=== PATIENT | female | born 1950 | race Caucasian/White ===

== ENCOUNTER 2017-08-23 15:24 | Inpatient (IN) | payer MEDICARE ==
[2017-08-23 16:51] LABS: EOS % 0.6 % (0-6); GRAN % 49.7 % (47-80); HEMOGLOBIN 13.3 gm/dl (11.6-16.0); LYMPH % 39.3 % (16-45); MEAN CELL VOLUME 79.3 fl (81-97); MEAN CORPUSCULAR HEMOGLOBIN 25.7 pg (27-33); MEAN CORPUSCULAR HGB CONC 32.4 g/dl (32-36); MEAN PLATELET VOLUME 10.6 fl (7.4-10.4); MONO % 10.4 % (0-9); PLATELET COUNT 172 K/uL (130-400); RED BLOOD COUNT 5.17 M/uL (3.80-5.40); RED CELL DISTRIBUTION WIDTH 15.1 % (11.5-14.5); WHITE BLOOD COUNT W/O DIFF 1.7 K/uL (4.2-12.2)
[2017-08-23 17:03] LABS: CREATININE 1.4 mg/dL (0.5-0.9)
[2017-08-23 17:04] LABS: BILIRUBIN,TOTAL 0.6 mg/dL (0.2-1.0); TOTAL PROTEIN 7.6 g/dL (6.6-8.7)
[2017-08-23 17:09] LABS: ALB/GLOB RATIO 1.2 (1.1-1.8); ALBUMIN 4.1 g/dL (4.0-5.0)
--- NOTE | 2017-08-23 17:18 | Emergency Department Record ---
History of Present Illness - General Chief complaint: Weakness Stated complaint: KEEPS FALLING,AND NOT EATING Time Seen by Provider: 08/23/17 15:47 Source: Patient Mode of Arrival: Wheelchair Limitations: No limitations - History of Present Illness Initial comments: pt has been getting increasingly weak and having frequent falls. she has sat in a chair since yesterday because she was too weak to get up. Complaint: Generalized weakness Onset/Timin -: Days(s) Location: Generalized Severity: Mild Severity scale (1-10): 5 Quality: Aching Consistency: Getting worse Improves with: None Worsens with: None Associated Symptoms: Loss of appetite - Melva Coma Scale Eye Response: (4) Open spontaneously Motor Response: (6) Obeys commands Verbal Response: (5) Oriented [place] Total: 15 - Symptoms of Stroke Symptoms of stroke: Muscle Weakness - Related Data Home Medications Medication Instructions Recorded Confirmed Last Taken Diltiazem HCl [Cardizem] 60 mg PO DAILY 08/23/17 08/23/17 Unknown Allergies Allergy/AdvReac Type Severity Reaction Status Date / Time Penicillins Allergy PT UNSURE Verified 08/23/17 15:47 OF REACTION Travel Screening - Travel/Exposure Within Last 30 Days Have you traveled within the last 30 days?: No - Travel/Exposure Within Last Year Have you traveled outside the [place] in the last year?: No - Additonal Travel Details Have you been exposed to anyone with a communicable illness?: No - Travel Symptoms Symptom Screening: None Review of Systems Reviewed: No additional complaints except as noted below Constitutional: Reports: As per HPI. Denies: Chills, Fever, Malaise, Night sweats, Weakness, Weight change Eyes: Reports: As per HPI. Denies: Eye discharge, Eye pain, Photophobia, Vision change ENT: Reports: As per HPI. Denies: Congestion, Dental pain, Ear pain, Epistaxis , Hearing loss, Throat pain Respiratory: Reports: As per HPI. Denies: Cough, Dyspnea, Hemoptysis, Stridor, Wheezes Cardiovascular: Reports: As per HPI. Denies: Arrhythmia, Chest pain, Dyspnea on exertion, Edema, Murmurs, Orthopnea, Palpitations, Paroxysmal nocturnal dyspnea, Rheumatic Fever, Syncope Endocrine: Reports: As per HPI. Denies: Fatigue, Heat or cold intolerance, Polydipsia, Polyuria Gastrointestinal: Reports: As per HPI. Denies: Abdominal pain, Constipation, Diarrhea, Hematemesis, Hematochezia, Melena, Nausea, Vomiting Genitourinary: Reports: As per HPI. Denies: Abnormal menses, Discharge, Dyspareunia, Dysuria, Frequency, Hematuria, Incontinence, Retention, Urgency Musculoskeletal: Reports: As per HPI. Denies: Arthralgia, Back pain, Gout, Joint swelling, Myalgia, Neck pain Skin: Reports: As per HPI. Denies: Bruising, Change in color, Change in hair/ nails, Lesions, Pruritus, Rash Neurological: Reports: As per HPI. Denies: Abnormal gait, Confusion, Headache, Numbness, Paresthesias, Seizure, Tingling, Tremors, Vertigo, Weakness Psychiatric: Reports: As per HPI. Denies: Anxiety, Auditory hallucinations, Depression, Homicidal thoughts, Suicidal thoughts, Visual hallucinations Hematological/Lymphatic: Reports: As per HPI. Denies: Anemia, Blood Clots, Easy bleeding, Easy bruising, Swollen glands Past Medical History - SOCIAL HISTORY Smoking Status: Never smoker Alcohol Use: None Drug Use: None - RESPIRATORY Hx Pneumonia: Yes (hx of sepsis) - CARDIOVASCULAR Hx Hypertension: Yes Comment:: coded with sepsis in ICU x2 - NEURO Hx Neuro Disorders: No - GI Hx GI Disorders: Yes Comment:: feeding tube - Hx Genitourinary Disorders: No - ENDOCRINE Hx Endocrine Disorders: No - MUSCULOSKELETAL Hx Arthritis: Yes (RA) Hx Osteoporosis: Yes - PSYCH Hx Psych Problems: No - HEMATOLOGY/ONCOLOGY Hx Hematology/Oncology Disorders: No Hx Bruising: Yes Family Medical History Any Significant Family History?: Yes Physical Exam - General General Appearance: Alert, Oriented x3, Cooperative, Moderate distress - Head Head exam: Normal inspection, Other - Eye Eye exam: Normal appearance, PERRL, EOMI Pupils: Normal accommodation - ENT ENT exam: Normal exam, Mucous membranes dry, Normal external ear exam, Normal orophraynx Ear exam: Normal external inspection. negative: External canal tenderness Nasal Exam: Normal inspection. negative: Discharge, Sinus tenderness Mouth exam: Normal external inspection, Tongue normal Teeth exam: Normal inspection. negative: Dental caries Throat exam: Normal inspection. negative: Tonsillar erythema, Tonsillar exudate - Neck Neck exam: Normal inspection, Full ROM. negative: Tenderness - Respiratory Respiratory exam: Normal lung sounds bilaterally. negative: Respiratory distress - Cardiovascular Cardiovascular Exam: Regular rate, Normal rhythm, Normal heart sounds - GI/Abdominal GI/Abdominal exam: Soft, Normal bowel sounds. negative: Tenderness - Rectal Rectal exam: Deferred - exam: Deferred - Extremities Extremities exam: Normal inspection, Full ROM, Normal capillary refill, Other. negative: Tenderness - Back Back exam: Reports: Normal inspection, Full ROM, Other (RA deformities of hands) . Denies: Muscle spasm, Rash noted, Tenderness - Neurological Neurological exam: Alert, CN II-XII intact, Oriented X3. negative: Normal gait - Psychiatric Psychiatric exam: Normal affect, Normal mood - Skin Skin exam: Dry, Intact, Normal color, Warm Course Vital Signs 08/23/17 15:33 Temperature 99.1 F Pulse Rate 91 H Respiratory 20 Rate Blood Pressure 181/92 Pulse Ox 96 - Reevaluation(s) Reevaluation #1: 08/23/17 19:57 pts friend pulled me aside and stated she needs a social work consult because her living conditions horrid Medical Decision Making - Lab Data Result diagrams: 08/23/17 16:02 08/23/17 16:02 Lab Results 08/23/17 Range/Units 16:02 WBC 1.7 L (4.2-12.2) K/uL RBC 5.17 (3.80-5.40) M/uL Hgb 13.3 (11.6-16.0) gm/dl Hct 41.0 (35.0-47.0) % MCV 79.3 L (81-97) fl MCH 25.7 L (27-33) pg MCHC 32.4 (32-36) g/dl RDW 15.1 H (11.5-14.5) % Plt Count 172 (130-400) K/uL MPV 10.6 H (7.4-10.4) fl Gran % 49.7 (47-80) % Lymphocytes % 39.3 (16-45) % Monocytes % 10.4 H (0-9) % Eosinophils % 0.6 (0-6) % Basophils % 0.0 (0-6) % Disposition Disposition: Admit Clinical Impression: Pyelonephritis Disposition: Still a Patient at [facility] Decision to Admit: Admit from ER Decision to Admit Date: 08/23/17 Decision to Admit Time: 19:58 Quality - Quality Measures Quality Measures: N/A - Blood Pressure Screening Does Patient Have Any of the Following: Active Dx of HTN Blood Pressure Classification: Hypertensive Reading Systolic Measurement: 181 Diastolic Measurement: 92 Screening for High Blood Pressure: Patient Exclusion, Hx of HTN [G9744]
[2017-08-23 17:22] LABS: URINE APPEARANCE CLOUDY; URINE BILIRUBIN MODERATE (NEGATIVE); URINE BLOOD LARGE (NEGATIVE); URINE COLOR YELLOW; URINE GLUCOSE (UA) NEGATIVE (NEGATIVE); URINE KETONE 15 mg/dL (NEGATIVE); URINE LEUKOCYTE ESTERASE MODERATE (NEGATIVE); URINE NITRITE NEGATIVE (NEGATIVE); URINE UROBILINOGEN 0.2 E.U./dL (0.20 - 1.00)
[2017-08-23 17:38] LABS: URINE BACTERIA NONE SEEN; URINE EPITHELIAL CELLS 0 - 2 (FEW)
[2017-08-23] MEDS ORDERED: CIPROFLOXACIN LACTATE/D5W 400 MG/200 ML BAG IVPB ONE (18:09)
[2017-08-23] MEDS ORDERED: METOPROLOL TART 50 MG TABLET PO ONE (19:55)
[2017-08-23] MEDS ORDERED: LISINOPRIL 20 MG TABLET PO ONE (19:56)
[2017-08-23] MEDS ORDERED: ACETAMINOPHEN 325 MG TAB PO PRN (20:42)
[2017-08-23] MEDS: CIPROFLOXACIN LACTATE/D5W 400 MG/200 ML BAG IVPB SCH (20:50)
[2017-08-23] MEDS: METOPROLOL TART 50 MG TABLET PO SCH (21:03)
[2017-08-23] MEDS: DILTIAZEM HCL 30 MG TABLET PO SCH (21:37)
[2017-08-23] MEDS: NAPROXEN 250 MG TABLET PO SCH (22:54)
[2017-08-23] MEDS: OXYBUTYNIN CHLORIDE 5MG TABLET PO SCH (22:56)
[2017-08-24] MEDS ORDERED: FLUCONAZOLE 100 MG TABLET PO ONE (07:00)
[2017-08-24] MEDS: CIPROFLOXACIN LACTATE/D5W 400 MG/200 ML BAG IVPB SCH ×2 (08:44→21:36)
[2017-08-24] MEDS: TRIAMTERENE 37.5/HCTZ 25 CAPSULE PO SCH (09:29)
[2017-08-24] MEDS: METOPROLOL TART 50 MG TABLET PO SCH ×2 (09:29→21:43)
[2017-08-24] MEDS: LISINOPRIL 20 MG TABLET PO SCH (09:29)
[2017-08-24] MEDS: OXYBUTYNIN CHLORIDE 5MG TABLET PO SCH ×2 (09:29→21:37)
[2017-08-24] MEDS: DILTIAZEM HCL 30 MG TABLET PO SCH (09:30)
[2017-08-24] MEDS: ENOXAPARIN 30 MG/0.3 ML SYR SQ SCH (09:32)
[2017-08-24] MEDS ORDERED: Non-Formulary MISC (Leflunomide [Leflunomide] 10 MG) PO SCH (10:00)
[2017-08-24] MEDS ORDERED: BISOPROLOL FUMARATE 10 MG PO SCH (10:00)
[2017-08-24] MEDS ORDERED: FLU VAC QS 2017-18 (INPT, 6MO+) 60MCG/0.5ML IM ONE (10:00)
[2017-08-24] MEDS ORDERED: OXYBUTYNIN PO SCH (10:00)
[2017-08-24] MEDS ORDERED: DICLOFENAC SODIUM 100 MG PO SCH (10:00)
[2017-08-24] MEDS: TMP/SMZ 160MG/800MG TAB PO SCH ×2 (11:26→21:43)
[2017-08-24] MEDS: NAPROXEN 250 MG TABLET PO SCH ×2 (11:26→21:47)
[2017-08-25] MEDS: CIPROFLOXACIN LACTATE/D5W 400 MG/200 ML BAG IVPB SCH ×2 (09:04→21:38)
[2017-08-25] MEDS: DILTIAZEM HCL 30 MG TABLET PO SCH (10:21)
[2017-08-25] MEDS: TRIAMTERENE 37.5/HCTZ 25 CAPSULE PO SCH (10:22)
[2017-08-25] MEDS: OXYBUTYNIN CHLORIDE 5MG TABLET PO SCH ×2 (10:22→21:45)
[2017-08-25] MEDS: ENOXAPARIN 30 MG/0.3 ML SYR SQ SCH (10:22)
[2017-08-25] MEDS: NAPROXEN 250 MG TABLET PO SCH ×2 (10:22→21:44)
[2017-08-25] MEDS: METOPROLOL TART 50 MG TABLET PO SCH ×2 (10:22→21:44)
[2017-08-25] MEDS: TMP/SMZ 160MG/800MG TAB PO SCH ×2 (10:22→21:44)
[2017-08-25] MEDS: LISINOPRIL 20 MG TABLET PO SCH (10:22)
--- NOTE | 2017-08-25 10:47 | RADIOLOGY REPORT ---
DATE: 08/23/2017 at 5:54 p.m. EXAM: TWO-VIEW, CHEST. HISTORY: Weakness. TECHNIQUE: PA and lateral views. COMPARISON: AP chest dated 06/27/2014. FINDINGS: Stable heart size. The lungs appear hyperinflated suggesting chronic obstructive pulmonary disease. No definite acute infiltrate seen. No pleural effusion or pneumothorax evident. Calcification of the aorta. Extensive postoperative findings in the cervical and upper thoracic spine, probably representing both a relatively long posterior fusion and a shorter anterior fusion. On the frontal view, note is made of an approximately 12 mm oval sclerotic density overlying the left humeral head not seen previously. This is difficult to see in the lateral view and could be an artifact, a small soft tissue calcification superimposed over the humeral head, or a small, new, nonspecific focus of sclerosis that has developed in the humeral head in the interval. If clinically warranted, follow-up left shoulder series could be performed. IMPRESSION: 1. HYPERINFLATION CONSISTENT WITH CHRONIC OBSTRUCTIVE PULMONARY DISEASE. 2. EXTENSIVE POSTOPERATIVE CERVICAL AND UPPER THORACIC FUSION. 3. STABLE HEART SIZE. 4. SMALL NODULAR DENSITY OVERLYING THE LEFT HUMERAL HEAD NOT SEEN PREVIOUSLY. MAY BE AN ARTIFACT OR POSSIBLY A SOFT TISSUE CALCIFICATION. JOB [facility]BER: [id number] [facility]
--- NOTE | 2017-08-25 20:18 | RADIOLOGY REPORT ---
EXAM: FOOT, LEFT 3 VIEWS HISTORY: LEFT GREAT TOE ULCERATION FOR TWO YEARS. TECHNIQUE: Left foot three views. COMPARISON: None. FINDINGS: The bones are osteopenic. There is hyperextension of the MTP joints and hyperflexion of the PIP joints. Additionally, there is lateral subluxation/ dislocation of the first through third MTP joints. There is severe degenerative change involving the first MTP joint. History reports chronic left great toe ulceration. No osseous destructive changes are seen to suggest osteomyelitis. No clearly acute osseous abnormality. IMPRESSION: 1. NO RADIOGRAPHIC EVIDENCE FOR OSTEOMYELITIS IN THIS PATIENT WITH REPORTED HISTORY OF CHRONIC GREAT TOE ULCERATION. 2. SEVERE AND ADVANCED FIRST MTP JOINT DEGENERATIVE CHANGE. 3. THERE IS LATERAL SUBLUXATION/DISLOCATION OF THE FIRST THROUGH THIRD MTP JOINTS. THERE IS ALSO HYPEREXTENSION OF THE MTP JOINTS AND HYPERFLEXION OF THE PIP JOINTS. 4. MODERATE SOFT TISSUE SWELLING FIFTH MTP JOINT REGION. JOB NUMBER: [id number] [facility]
[2017-08-26] MEDS: CIPROFLOXACIN LACTATE/D5W 400 MG/200 ML BAG IVPB SCH (08:32)
[2017-08-26] MEDS: ONDANSETRON 4 MG ODT TABLET SL PRN (09:32)
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
[2017-08-26] MEDS: DILTIAZEM HCL 30 MG TABLET PO SCH (11:23)
[2017-08-26] MEDS: LISINOPRIL 20 MG TABLET PO SCH (11:24)
[2017-08-26] MEDS: METOPROLOL TART 50 MG TABLET PO SCH ×2 (11:24→22:40)
[2017-08-26] MEDS: TRIAMTERENE 37.5/HCTZ 25 CAPSULE PO SCH (11:24)
--- NOTE | 2017-08-26 12:20 | History and Physical Report ---
DATE: 08/23/2017 CHIEF COMPLAINT: Frequent falls, urinary tract infection, ulcer on the left great toe. HISTORY OF PRESENT ILLNESS: This 67-year-old female came into the emergency department because a friend who was a nurse went over to her house. She is falling a lot. She was concerned about her. She wanted her to come into the ER for evaluation. She was evaluated by and found a urinary tract infection ulcer of the left great toe. Put her in the hospital for IV antibiotics and further care. She lives alone. She walks with a walker and needs assistance, one person to help her get around. She is an ex-smoker. PAST MEDICAL HISTORY: Crippling rheumatoid arthritis. Her hands are very deformed. Hypertension, overactive bladder disorder. PAST SURGICAL HISTORY: She does have some trouble with eating and she has a feeding tube but she would rather eat than use the feeding tube. She had neck surgery x2, left foot surgery great toe, carpal tunnel surgery. MEDICATIONS: 1. Dyazide 1 a day. 2. Uroxatral 5 mg daily. 3. Lopressor 100 mg b.i.d. 4. Lisinopril 40 mg daily. 5. Leflunomide once a day. We will stop that because it immunocompromises her while she has an infection. 6. Diltiazem 60 mg daily. 7. Voltaren 100 mg daily. 8. Zebeta (bisoprolol) 10 mg daily. ALLERGIES: PENICILLIN. FAMILY/PSYCHOSOCIAL HISTORY: She never smoked. Actually, she said she is an ex-smoker. She used to smoke and stopped many years ago. No alcohol or drug use. Family history significant for arthritis. REVIEW OF SYSTEMS: HEENT: No upper respiratory infection symptoms, cough, cold, or congestion. Cardiovascular: No chest pain, palpitations, or arrhythmia. Respiratory: No cough, cold, or congestion. She does choke when she is eating food. Gastrointestinal: She has a feeding tube and she had a stroke in the past, left-sided paralysis which has resolved. No diarrhea or vomiting. Genitourinary: Her urine is concentrated. She noticed that prior to coming in. No frequency or pain on urination. Musculoskeletal: She has deforming rheumatoid arthritis and she has an ulcer on the left great toe. Neurological: No CVA, paralysis, or paresthesias. Actually, she did have a CVA many years ago in 2002. No residual paralysis. It may be the reason she has the feeding tube. [employer]: No vaginal bleeding or lumps in the breasts. Endocrine: No diabetes or thyroid disease. Integument: She has an ulcer of the left great toe. PHYSICAL EXAMINATION: VITALS: Height 5 feet 1 inch, weight 120 pounds. Temperature 98.6, pulse 76, blood pressure 159/81, respiratory rate 20, pulse ox 95% on room air. HEENT: Pupils are equal, round, and reactive to light and accommodation. Extraocular muscles are intact. Throat is clear. Nose is clear. Tympanic membranes are carlos. NECK: Supple. No jugular venous distention. No hepatojugular reflux. No carotid bruits. Thyroid is smooth. CARDIOVASCULAR: Regular rate and rhythm without murmurs, clicks, rubs, or gallops. RESPIRATORY: Clear to auscultation. Breath sounds equal bilaterally. Chest x-ray showing COPD. ABDOMEN: Soft, nontender. No hepatosplenomegaly, no tenderness. Bowel sounds are active. EXTREMITIES: No pitting edema. No cyanosis, no clubbing. Full range of motion. There is an ulcer on the left great toe which is deep. BREASTS: Exam deferred. GYNECOLOGICAL: Exam deferred. RECTAL: Exam deferred. NEUROLOGIC: Cranial nerves II-XII intact. No gross defects. Sensation normal, strength normal. Deep tendon reflexes equal bilaterally with Babinski negative. MENTAL STATUS: Alert and oriented x3. IMPRESSION: 1. Urinary tract infection. 2. Severe crippling rheumatoid arthritis. 3. Left great toe ulcer, deep. 4. Chronic obstructive pulmonary disease. 5. Difficulty with walking requiring one person to assist. 6. Difficulty with swallowing with a feeding tube. PLAN: IV Cipro 400 mg a day. Bactrim double strength 1 b.i.d. X-ray of the left foot to look at the left great toe. Wound care twice a day with Shur-Clens and triple antibiotics and physical therapy to get stronger. INPATIENT CERTIFICATION: Admit to inpatient care. Based on my medical assessment, after consideration of patient's risk factors, age, comorbidities, and patient's presenting symptoms and acuity, I expect that this patient will remain in the hospital greater than or equal to 2 midnights and that the services needed warrant inpatient care because of inability to walk, ulcer on the left great toe, IV antibiotics, and urinary tract infection. Estimated length of stay is 3 days. The patient may reasonably be expected to be discharged or transferred to a hospital within 96 hours after admission to [facility]. I certify that my determination is in accordance with my understanding of Medicare requirements for reasonable and necessary inpatient services. CONRAD
[2017-08-26] MEDS ORDERED: PANTOPRAZOLE SODIUM 40 MG TABLET PO ONE (15:10)
[2017-08-26] MEDS ORDERED: AL HYDROX/MAG HYDROX 30ML UD PO ONE (15:10)
[2017-08-26] MEDS: ENOXAPARIN 30 MG/0.3 ML SYR SQ SCH (15:13)
[2017-08-26] MEDS: NAPROXEN 250 MG TABLET PO SCH (15:14)
[2017-08-26] MEDS: OXYBUTYNIN CHLORIDE 5MG TABLET PO SCH ×2 (15:14→22:36)
[2017-08-26] MEDS: TMP/SMZ 160MG/800MG TAB PO SCH ×2 (15:14→22:41)
[2017-08-26] MEDS ORDERED: NAPROXEN 250 MG TABLET PO PRN (15:47)
[2017-08-26] MEDS: CIPROFLOXACIN HCL 500 MG TABLET PO SCH (22:37)
[2017-08-27 06:30] LABS: EOS % 0.5 % (0-6); GRAN % 50.7 % (47-80); HEMATOCRIT 38.4 % (35.0-47.0); HEMOGLOBIN 12.1 gm/dl (11.6-16.0); LYMPH % 39.3 % (16-45); MEAN CELL VOLUME 80.7 fl (81-97); MEAN CORPUSCULAR HEMOGLOBIN 25.4 pg (27-33); MEAN CORPUSCULAR HGB CONC 31.5 g/dl (32-36); MONO % 9.5 % (0-9); PLATELET COUNT 170 K/uL (130-400); RED BLOOD COUNT 4.76 M/uL (3.80-5.40); RED CELL DISTRIBUTION WIDTH 16.1 % (11.5-14.5); WHITE BLOOD COUNT W/O DIFF 2.1 K/uL (4.2-12.2)
[2017-08-27 06:54] LABS: CREATININE 2.5 mg/dL (0.5-0.9)
[2017-08-27] MEDS ORDERED: 0.9 % SODIUM CHLORIDE 500ML 500 ML IV SCH (08:15)
[2017-08-27] MEDS: AL HYDROX/MAG HYDROX 30ML UD PO SCH ×3 (08:48→17:09)
[2017-08-27] MEDS: PANTOPRAZOLE SODIUM 40 MG TABLET PO SCH (08:49)
[2017-08-27] MEDS: OXYBUTYNIN CHLORIDE 5MG TABLET PO SCH ×2 (09:57→22:46)
[2017-08-27] MEDS: DILTIAZEM HCL 30 MG TABLET PO SCH (09:59)
[2017-08-27] MEDS: METOPROLOL TART 50 MG TABLET PO SCH ×2 (10:02→22:46)
[2017-08-27] MEDS: CIPROFLOXACIN HCL 500 MG TABLET PO SCH ×2 (10:04→22:45)
[2017-08-27] MEDS: ENOXAPARIN 30 MG/0.3 ML SYR SQ SCH (10:13)
--- NOTE | 2017-08-27 13:00 | Medical Records Consult ---
DATE OF CONSULTATION: 08/26/2017 REQUESTING PHYSICIAN: Bhavik Guerrero DO REASON FOR CONSULTATION: Dysphagia. HISTORY OF PRESENT ILLNESS: The patient is a very pleasant 67-year-old female seen in consultation at the request of Dr. Guerrero for evaluation of dysphagia. The patient reports that she has had problems swallowing for the past 3 or so years. She relates a story where she was admitted to [facility] with respiratory failure and sepsis 3 years ago in July 2014. At that time, she was seen by Gastroenterology and a gastrostomy tube was placed. She states that since that time, she has had problems with swallowing, pointing to her upper neck region. She has been seen, in fact, by speech pathologist and had video swallow evaluation in the past. Recommendations were for chin tuck, which is difficult for her to do because of her previous cervical spine surgery. She states that she has generally been able to eat okay. Sometimes she gets an upset stomach which reduces her oral intake. She finds eating thick liquids and solids easier than taking thin liquids. She had a previous endoscopy at the time of her admission in 2014 which revealed a normal esophagus with some mild gastritis and a normal duodenum. A 20 Amharic feeding tube was placed at that time. She admits to occasional coughing and swallowing and repetitive swallowing to facilitate food passage into the esophagus. She denies any true esophageal dysphagia. She was admitted to the hospital this time for recurring falls. The cause of this remains unclear. She asked to come to the emergency department for further evaluation. She was found to have a urinary tract infection and an ulcer of the left great toe. She was started on antibiotics. She is a previous smoker and suffers with COPD. She walks with a walker for assistance. She has severe crippling rheumatoid arthritis. Additional medical problems are hypertension, overactive bladder disorder. Previous surgeries include the above-mentioned gastrostomy tube, left foot surgery of the great toe, and carpal tunnel release. HOME MEDICATIONS: 1. Dyazide. 2. Uroxatral. 3. Lopressor. 4. Lisinopril. 5. Leflunomide. 6. Diltiazem. 7. Voltaren. 8. Zebeta. ALLERGIES: PENICILLIN. REVIEW OF SYSTEMS: Noted on the medical record. She admits to occasional coughing but denies chest pain. She does choke on occasion when swallowing. She has some left-sided weakness due to previous cerebrovascular accident. PHYSICAL EXAMINATION: GENERAL: She is alert and oriented. She has deforming arthritis, particularly of her hands. HEART: Regular. LUNGS: Essentially clear. ABDOMEN: Soft. No real tenderness. EXTREMITIES: Free from edema. NEUROMUSCULAR: Examination not completed. LABORATORY DATA: White blood cell count depleted at 1.7, hemoglobin 13.3, hematocrit 41.0, platelet count 172,000. Metabolic panel is unremarkable except for an elevated glucose of 183, creatinine 1.4, BUN 40, creatinine clearance 40, chloride depleted at 95. CPK 209, BNP 4172, troponin 0.019. RADIOGRAPHIC DATA: Chest x-ray revealed hyperinflation consistent with COPD. Extensive postoperative cervical and upper thoracic fusion. Small nodular density involving the left humeral head and not seen previously. Could be artifactual or soft tissue calcification. IMPRESSION AND PLAN: The patient's oropharyngeal/cervical dysphagia seems to be chronic and occurring for the past 3 years. She has had previous evaluation including upper endoscopy which revealed a normal esophagus and has been seeing speech therapy. It is recommended she follow a dysphagia-type diet. She does well with Boost as a supplement. She does have some epigastric discomfort and perhaps might be sensitive to the Voltaren. If she needs to continue this, a proton pump inhibitor would be of benefit. She does have a followup appointment with her primary care physician, Dr. Kai Molina next month. I thought it might be of benefit to discuss her dysphagia with him and perhaps have a repeat video swallow evaluation. If the necessary upper endoscopy can be repeated, although I do not think she has true esophageal dysphagia as discussed above. Her swallowing difficulty could be related to her cervical spine surgery, previous cerebrovascular accident, or her crippling arthritis in fact. I would be happy to see her again in the future at your discretion. Thank you for allowing me to participate in her care. CC: Dr. Kai Guerrero, DO MARTINES
[2017-08-27] MEDS: ONDANSETRON 4 MG ODT TABLET SL PRN (13:55)
--- NOTE | 2017-08-27 15:30 | Physical Therapy Tx Note ---
Physical Therapy Tx Note - Treatment Note Tolerated: Good, Other (Refusal) Total Time Spent With Patient: 10 Physical Therapy Tx Note: Detail (The patient was laying in bed upon arrival. The patient's gait skills were going to be assessed, but patient refused therapy. She stated that she was not feeling well again today, as she had increased nausea, and felt that if she moved she would vomit. She stated that she was having difficulty keeping food down at breakfast and at lunch. The patient was asked again to ambulate, but refused a second time. She states that she is able to ambulate from her bed to the restroom without issue, but therapy has not assessed this activity. The patient was left in bed with her call light in reach.) Physical Therapy Problem List: Detail (1) Decreased ROM due to RA 2) Decreased strength 3) History of falls 4) Gait skills not assessed) Physical Therapy Goals: 1) The patient will be able to ambulate household distances with least assistive assistive device for safety once discharged from [facility]. 2) The patient will increase LE strength to increase participation in gait activities. Prognosis: Moderate Physical Therapy Plan: The patient will be seen 1x/day until inpatient discharge from [facility] for gait training and LE strengthening activities.
--- NOTE | 2017-08-27 18:16 | Swallow Evaluation ---
Swallow Evaluation - General Patient Information Date of Assessment: 08/27/17 Referral Date: 08/27/17 Date of Onset: 3 years ago Admitting Diagnosis: Recurring falls, UTI Medical History: Pt presents with a hx of CVA, severe rheumatoid arthritis and a hx of dysphagia up to three years ago with an initial PEG placement and significant ST tx which resulted in a modified consistency diet which was mechanical soft. Current Feeding Status: All oral Cognitive Status: WFL Swallow Assessment - Oral Preparatory Phase Phase - Liquid: Normal Function Phase - Puree: Normal Function Phase - Solid: Abnormal Function (Patient is edentulous on the lower. Upper teeth are in repair and patient doesn't report pain. Due to edentulous status and general weakness patient is most appropriate for a generally soft diet which she states she follows at home.) - Oral Phase Phase - Liquid: Abnormal Function (Mild delay in bolus propulsion.) Phase - Puree: Normal Function Phase - Solid: Abnormal Function (See note above about edentulous status.) - Pharyngeal Phase Phase - Liquid: Abnormal Function (Pt came to IP with modified consistency of nectar thick liquid. During trials of thin via cup edge patient presented with consistent weak cough which persisted during and after the swallow. Patient did not present with overt s/s of thin liquid via cup edge. This leads me to believe that patient hx of residue in pharyngeal cavity as reported on VFSS completed in 2014 may again be a concern which is negatively impacting her functional swallow status.) Phase - Puree: Normal Function Phase - Solid: Normal Function - Additional Information Swallow Assessment Comment: Patient presents with mild oropharyngeal phase dysphagia which appears to be chronic over the past three years. Per VFSS completed in 2015 she has a hx of flash penetration with thin liquids however at bedside this date her overt s/s appeared to worsen upon trials of nectar thick liquids. It is the recommendation of this project landscape architect that this patient recieve continued care for dysphagia upon transition to [facility] in order to facilitate continued strengthening of the oropharyngeal structures and consider follow up visualization of the swallow (VFSS/FEES) in order to continue to guide treatment for this condition given her significant history and risk for aspiration as well as current findings at bedside. Mild to moderate deficits with oral phase which improved with general safe swallow precautions such as alternate bite/sip and utilize small bites/sips. Patient benefits from foods cut up at point of service secondary to poor motor control of hands. Pharyngeal phase appeared WFL for recommended diet but should be monitored in the transition of environments secondary to risk and hx of condition. Plan for Treatment - Diagnosis/Clinical Impression Diagnosis: Oropharyngeal dysphagia Clinical Impression: Patient presents with mild to moderate oropharyngeal dysphagia which appears chronic since 2014. Patient should continue with dysphagia therapy to develop a strengthening and home exercise program to decrease risk for aspiration. Patient may also be appropriate for dental referral due to edentulous lower jaw. Patient is in agreement that she is having some trouble swallowing but appears inconsistent with her account of the severity at present. Patient may require follow up visualization of the swallow to best guide treatment procedures. - Consistency Modification Consistency Modification: Soft Liquid Modification: Regular Medication Modification: Crushed in Puree - Behavior Modification Behavior Modification: Small Sips, Alternate Sips and Bites, Hard Swallow, Position upright for all oral intake - Additional Plan Details Plan for Treatment: Follow up with ST tx at [facility]. Diagnosis/Recommendation Discussed With: Patient, Caregiver, Other (Discharge planning team.) Goals for Treatment - Additional Goal Detail Additional Goal Detail: No goals established due to plan for transfer to [facility] where ST tx should be continued.
[2017-08-28 06:57] LABS: HEMATOCRIT 37.4 % (35.0-47.0); HEMOGLOBIN 11.6 gm/dl (11.6-16.0)
[2017-08-28] MEDS: PANTOPRAZOLE SODIUM 40 MG TABLET PO SCH (07:28)
[2017-08-28] MEDS: AL HYDROX/MAG HYDROX 30ML UD PO SCH (07:30)
--- NOTE | 2017-08-28 08:26 | RADIOLOGY REPORT ---
EXAM: CHEST, TWO VIEWS HISTORY: COUGH. TECHNIQUE: AP and lateral views of the chest were obtained. Comparison: Two view chest 08/23/17. FINDINGS: Stable heart size. The lungs again appear hyperinflated suggesting COPD. Mild linear fibrosis or discoid atelectasis left base is more apparent currently. No pleural effusion or pneumothorax evident. Thoracic curve to the right. There is a round probably peripherally calcified mass anterior to the mid trachea which in retrospect was present previously, measuring about 3.1 cm in size, which may be a large calcified thyroid nodule. In retrospect I believe this was present on the prior post intubation chest x-ray of 06/27/14 at 3:03 p.m. as well and is probably not increased in size significantly in the interval. The postoperative findings in the lower cervical and upper thoracic spine again noted. The nodular density overlying the left humeral head on the frontal chest of 08/23/17 is no longer clearly identified. There may have been an overlying artifact. IMPRESSION: 1. HYPERINFLATION SUGGESTING COPD. 2. SOME LINEAR FIBROSIS OR DISCOID ATELECTASIS LEFT BASE. 3. APPROXIMATELY 3.1 CM ROUND CALCIFIED DENSITY IN THE ANTERIOR MEDIASTINUM MAY BE A LARGE NODE OR POSSIBLY A LOW THYROID NODULE. THIS APPEARS ESSENTIALLY UNCHANGED FROM A PRIOR CHEST X-RAY OF 06/27/14. 4. POSTOP CHANGES LOWER CERVICAL AND UPPER THORACIC SPINE BEFORE. JOB NUMBER: [id number] MTDD
[2017-08-28] MEDS: METOPROLOL TART 50 MG TABLET PO SCH (09:39)
[2017-08-28] MEDS: CIPROFLOXACIN HCL 500 MG TABLET PO SCH (09:40)
[2017-08-28] MEDS: DILTIAZEM HCL 30 MG TABLET PO SCH (09:41)
[2017-08-28] MEDS: OXYBUTYNIN CHLORIDE 5MG TABLET PO SCH (09:41)
[2017-08-28] MEDS: ENOXAPARIN 30 MG/0.3 ML SYR SQ SCH (09:41)
--- NOTE | 2017-08-28 10:21 | Discharge Note ---
VTE H&P Assessment - Risk for VTE Risk for VTE: Yes Risk Level: Moderate Risk Assessment Date: 08/24/17 Risk Assessment Time: 10:00 VTE Orders Placed or Will Be Placed: Yes Discharge Medications - Discharge Medications Prescriptions: Ciprofloxacin HCl [Cipro] 500 mg PO Q12HR #14 tablet Diltiazem HCl [Cardizem] 60 mg PO DAILY #30 tablet Metoprolol Tartrate [Lopressor] 100 mg PO BID #60 tablet Pantoprazole Sodium [Protonix] 40 mg PO DAILYAC #30 tablet. Home Medications: Ambulatory Orders Leflunomide 0 mg PO DAILY 06/27/14 [Last Taken Unknown] Metoprolol Tartrate [Lopressor] 100 mg PO BID 06/27/14 [Last Taken Unknown] Oxybutynin [Oxytrol] 5 g PO DAILY 06/27/14 [Last Taken Unknown] Acetaminophen [Tylenol 325Mg] 650 mg PO Q4H PRN tablet 08/28/17 [Last Taken Unknown] Ciprofloxacin HCl [Cipro] 500 mg PO Q12HR #14 tablet 08/28/17 [Last Taken Unknown] Diltiazem HCl [Cardizem] 60 mg PO DAILY #30 tablet 08/28/17 [Last Taken Unknown] Magnesium Hydroxide/Al Hydrox [Maalox] 30 ml PO WMEALS oral.susp 08/28/17 [ Last Taken Unknown] Metoprolol Tartrate [Lopressor] 100 mg PO BID #60 tablet 08/28/17 [Last Taken Unknown] Pantoprazole Sodium [Protonix] 40 mg PO DAILYAC #30 tablet. 08/28/17 [Last Taken Unknown] Discharge Note - Date Date of Discharge Note: 08/28/17 Disposition: Inpatient Rehab Facility Condition: (2) Stable Additional Instructions: follow up with Dr. Molina in 2-3 as scheduled. GI (Dr. Santiago)recommended an outpatient video swallow evaluation for reevaluating her disphagia problems which are chronic but may have progressed. They recommended Dr. Molina to set that up since we do not do that test at [facility]. cipro 500 mg bid for her pylonephritis/ UTI for 7 days restart her leflunomide 10 mg per day in 7 days which was stopped in the hospital. discontinue voltaren discontinue zebeta discontinue HCTZ Her cardizem(short acting) dose was reduced to once a day from three times a day because her BP was running low in the hospital and that may need to go back to three times a day if her BP goes up. Patient is being discharged to rehab to get stronger. Forms: Patient Portal Access Activity at Discharge: Increase Activity as Tolerated Diet at Discharge: Other (dysphagia diet)
--- NOTE | 2017-08-28 12:10 | Discharge Summary ---
DATE: 08/28/2017 at 10:32 a.m. DATE OF ADMISSION: 08/23/2017 DISCHARGE DIAGNOSES: 1. Pyelonephritis/urinary tract infection. 2. Chronic obstructive pulmonary disease. 3. Left great toe ulcer. 4. Rheumatoid arthritis, crippling. 5. Renal insufficiency. 6. Hypertension. The patient currently has a much lower blood pressure during this hospitalization. The Cardizem was decreased from 3 times a day short-acting Cardizem to once a day 60 mg. She may need to go back up to 3 times a day if her blood pressure creeps up as she is in the outpatient or penitentiary area. Also, Zebeta was discontinued and hydrochlorothiazide discontinued. ATTENDING PHYSICIAN: Bhavik Guerrero DO REASON FOR HOSPITALIZATION: Weakness, frequent falls, ulcer on the left great toe, possible urinary tract infection. This 67-year-old female came to the emergency department because a friend who is a nurse went over to her house and she was falling a lot. She was concerned about her and she wanted her to come into the emergency department for evaluation. She was evaluated by and found to have a urinary tract infection/pyelonephritis and ulcer of the left great toe. She was put in the hospital for IV antibiotics and further care. She lives alone. She walks with a walker and needs assistance, one person to help her get up. She is an ex-smoker. SIGNIFICANT FINDINGS: RBCs in her urine showed too numerous to count RBCs and also WBCs too numerous to count. No bacteria seen on the UA; however, a urine culture revealed Klebsiella pneumoniae 75,000 to 100,000 cfu/mL sensitive to Cipro. WBC in the emergency department was 1700, hemoglobin 13.7, platelet count 172,000. BUN 40, creatinine 1.4. She had 2 sets of cardiac enzymes which were in the indeterminate range but they were going down most likely because of her renal insufficiency. Her BNP was 4172. The last set of electrolytes prior to discharge, her kidney function did deteriorate slightly throughout the hospitalization but was improving on the day of discharge. Her BUN is 45, creatinine is 2.0. Potassium is 4.6 and her hemoglobin is 11.6. The most recent white count was 2100. She had 2 chest x-rays during the hospitalization. The first one showed hyperinflation consistent with chronic obstructive pulmonary disease, extensive postoperative cervical and upper thoracic fusion, stable heart size, small nodular density overlying the left humeral head and this may be artifact according to the radiologist. A second chest x-ray was done on 08/27/2017 which showed hyperinflation suggesting COPD, some linear fibrosis, and discoid atelectasis left base, approximately 3.1 round calcified density in the anterior mediastinum, maybe a large node or possibly a low thyroid nodule. This appears essentially unchanged from a prior chest x-ray of 06/27/2017. Also, postoperative changes in the cervical and upper thoracic spine as before and a spot on the humeral head disappeared. A foot x-ray was done of the left foot showing no radiographic evidence for osteomyelitis, severe and advanced first MCP joint degenerative changes. There is lateral subluxation and dislocation of the 1st through 3rd tarsophalangeal joints secondary to her rheumatoid arthritis, moderate soft tissue swelling 5th joint region. THERAPY PROVIDED: The patient was initially started on IV Cipro twice a day and added Bactrim double strength b.i.d. for the toe. When the urine sensitivity came back showing the urine was only sensitive to Cipro, the Bactrim was stopped. The toe was improving nicely. She also had some IV fluids because of a renal insufficiency that developed on the third day of admission which improved her renal status. Her creatinine went up to 2.5 and came back down to 2 on the day of discharge. The wound on her left great toe is changed daily with SurClens and triple antibiotic ointment was applied and it is healing nicely. CONDITION ON DISCHARGE: Improved but guarded because of her weak comorbid condition. DISCHARGE INSTRUCTIONS: We will discharge the patient to a rehab unit possibly [place] or another one depending on what is available. Follow up with Dr. Rodriguez as scheduled in 2-[address] Kinney, the GI doctor, consulted on her dysphagia which is a chronic problem for the last 2-3 years. He recommended a video swallow evaluation but that is not available at this hospital and Dr. Rodriguez can set that up as an outpatient if he feels it is necessary. Will discontinue the hydrochlorothiazide because she was too dehydrated with that. She should continue a dysphagia diet, thickening the fluids. We will restart the leflunomide in 5-7 days after the antibiotics are done because we do not want to use that for immunocompromise for her arthritis. Discontinue the Voltaren because of concern of gastritis during the hospitalization. We also discontinued Zebeta because of hypotension during the hospital. Cipro will be continued 500 mg b.i.d. for 7 days. Her Cardizem was reduced to 60 mg short-acting once a day instead of 3 times a day because of hypotension through the hospital. This may need to go up if her blood pressure goes back up after discharge. She is also started on Protonix 40 mg once a day because of the nausea and gastritis she was having during this hospitalization. [facility]
== END 2017-08-28 13:00 | DRG 690 ==
LOC: ER 15:24 → MEDSURG 20:14
PROVIDERS: ADMIT Emergency Medicine; ATTEND Emergency Medicine
DX: R53.1 Weakness (principal); N39.0 Urinary tract infection, site not specified; M06.842 Other specified rheumatoid arthritis, left hand; M06.841 Other specified rheumatoid arthritis, right hand; J44.9 Chronic obstructive pulmonary disease, unspecified; I00 Rheumatic fever without heart involvement; M81.0 Age-related osteoporosis without current pathological fracture; Z86.73 Personal history of transient ischemic attack (TIA), and cerebral infarction without residual deficits; R13.10 Dysphagia, unspecified; I95.9 Hypotension, unspecified; L97.529 Non-pressure chronic ulcer of other part of left foot with unspecified severity; R29.6 Repeated falls; I10 Essential (primary) hypertension; Z87.891 Personal history of nicotine dependence
CPT/HCPCS: 99285 ×2; 96365; 96366; 82550; 85025; 80053; 81001; 84484; 83880; 71046; J0744; 80048; 85014; 85018; 99223; 99233; J1650; J7040

== ENCOUNTER 2018-10-08 12:19 | Emergency (ER) | payer MEDICARE ==
[2018-10-08] MEDS ORDERED: 0.9 % SODIUM CHLORIDE 1,000 ML BAG IV ONE (12:28)
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
[2018-10-08 12:46] LABS: ABSOLUTE NEUTROPHIL COUNT 0.96; BASO % 0.5 % (0-6); EOS % 0.5 % (0-6); GRAN % 46.4 % (47-80); HEMATOCRIT 42.5 % (35.0-47.0); HEMOGLOBIN 13.2 gm/dl (11.6-16.0); LYMPH % 39.1 % (16-45); MEAN CELL VOLUME 75.8 fl (81-97); MEAN CORPUSCULAR HEMOGLOBIN 23.5 pg (27-33); MEAN CORPUSCULAR HGB CONC 31.1 g/dl (32-36); MEAN PLATELET VOLUME 10.4 fl (7.4-10.4); MONO % 13.5 % (0-9); PLATELET COUNT 164 K/uL (130-400); RED BLOOD COUNT 5.61 M/uL (3.80-5.40); RED CELL DISTRIBUTION WIDTH 16.7 % (11.5-14.5); WHITE BLOOD COUNT W/O DIFF 2.1 K/uL (4.2-12.2)
[2018-10-08 12:52] LABS: URINE APPEARANCE SL CLOUDY; URINE BILIRUBIN NEGATIVE (NEGATIVE); URINE BLOOD LARGE (NEGATIVE); URINE COLOR YELLOW; URINE GLUCOSE (UA) NEGATIVE (NEGATIVE); URINE KETONE NEGATIVE (NEGATIVE); URINE LEUKOCYTE ESTERASE MODERATE (NEGATIVE); URINE NITRITE POSITIVE (NEGATIVE); URINE UROBILINOGEN 0.2 E.U./dL (0.20 - 1.00)
[2018-10-08 12:59] LABS: BLOOD UREA NITROGEN 29 mg/dL (8-23); CREATININE 1.4 mg/dL (0.5-0.9); EST GLOMERULAR FILTRATION RATE 40 mL/min
[2018-10-08 13:00] LABS: LIPASE 14 U/L (13-60); TOTAL PROTEIN 8.7 g/dL (6.6-8.7)
[2018-10-08 13:01] LABS: URINE BACTERIA 4+; URINE EPITHELIAL CELLS NONE SEEN (FEW); URINE RBC 21 - 35 (NONE SEEN); URINE WBC >50 (0-2/hpf)
[2018-10-08 13:02] LABS: GLUCOSE,RANDOM 102 mg/dL (74-109)
[2018-10-08 13:04] LABS: ALT/SGPT 10 U/L (<33)
[2018-10-08 13:05] LABS: ALBUMIN 4.3 g/dL (4.0-5.0); ALKALINE PHOSPHATASE 109 U/L (35-104); AST/SGOT 21 U/L (10.0-35.0); BILIRUBIN,DIRECT < 0.2 mg/dL (0-0.3)
[2018-10-08] MEDS ORDERED: CEFTRIAXONE SODIUM 2 GM in 0.9 % SODIUM CHLORIDE 100ML 100 ML IVPB ONE (14:03)
--- NOTE | 2018-10-09 15:43 | RADIOLOGY REPORT ---
EXAMINATION: Two-view chest radiographs on 10/08/2018. CLINICAL HISTORY: Fall, patient denies pain. TECHNIQUE: Two-view chest. COMPARISON: Chest radiograph 08/28/2007. FINDINGS: Cardiac silhouette is mildly enlarged, stable. Pulmonary vasculature is nondilated. Lungs are hyperinflated. No focal pulmonary consolidation. No pleural effusion or pneumothorax. A round, peripherally calcified structure in the upper mediastinum is seen, similar radiographic appearance. No acute osseous findings. Diffuse thoracic spondylosis. Partially visualized cervicothoracic fusion hardware. IMPRESSION: 1. No acute chest findings. 2. Stable mild cardiac silhouette enlargement. 3. Indeterminate peripherally calcified structure in the upper mediastinum, similar appearance from 08/28/2007 comparison. Differential includes prominent calcified vascular structure, substernal thyroid nodule, or calcified lymph node. This could be further characterized with a CT as indicated clinically. MTDD
--- NOTE | 2018-10-09 15:44 | RADIOLOGY REPORT ---
EXAMINATION: Pelvic radiograph on 10/08/2018. CLINICAL HISTORY: Fall, patient denies pain. TECHNIQUE: Single AP view pelvis. COMPARISON: None. FINDINGS: Overlying bowel contents superimposed and limit visualization of the posterior bony pelvis. No acute fracture is seen. No obvious hip joint dislocation on this frontal view study. Mild bilateral femoroacetabular arthrosis. IMPRESSION: No acute osseous findings. MTDD
--- NOTE | 2018-10-09 15:45 | RADIOLOGY REPORT ---
EXAMINATION: Right knee radiographs on 10/08/2018. CLINICAL HISTORY: Fall, the patient denies pain. TECHNIQUE: Three views right knee. COMPARISON: None. FINDINGS: Small knee joint effusion. No definite acute fracture visualized. Diffuse osteopenia, limits osseous detail. No dislocation. Track environmental osteoarthrosis, greatest medially and anteriorly with joint space narrowing and marginal osteophytes, irregularity along the medial femoral condyle articular surface. IMPRESSION: 1. Small knee joint effusion. 2. No definite acute osseous findings. 3. Track environmental osteoarthrosis. [facility]
--- NOTE | 2018-10-09 15:46 | RADIOLOGY REPORT ---
CLINICAL HISTORY: Fall, the patient denies pain. TECHNIQUE: Three views of the left elbow. COMPARISON: None. FINDINGS: No significant elbow joint effusion is seen. Mild osseous irregularity along the lateral aspect of the radial head, possibly chronic. No lucent fracture line is seen. No elbow joint dislocation. Narrowed appearance of the radiocapitellar and ulnar humeral joint spaces, small ulnar osteophytes. IMPRESSION: 1. No visible elbow joint effusion. 2. No acute fracture detected. 3. Mild chronic-appearing deformity along the lateral radial head; may represent previous trauma or degenerative osteophytes. If there is continued concern for any acute fracture, consider follow-up radiographs in 10 to 14 days to assess for fracture site healing. 4. Degenerative changes of the elbow. MTDD
== END 2018-10-08 18:13 | disposition home or self-care (01) ==
LOC: ER 12:19
DX: T79.6XXA Traumatic ischemia of muscle, initial encounter (principal); S50.02XA Contusion of left elbow, initial encounter; S80.01XA Contusion of right knee, initial encounter; S30.0XXA Contusion of lower back and pelvis, initial encounter; N30.00 Acute cystitis without hematuria; E86.0 Dehydration; M06.9 Rheumatoid arthritis, unspecified; R53.1 Weakness; I10 Essential (primary) hypertension; W06.XXXA Fall from bed, initial encounter
CPT/HCPCS: 71046; 72170; 80048; 80076; 81001; 82550; 83690; 85025; 96365; 99284; J7030

== ENCOUNTER 2018-10-20 15:40 | Emergency (ER) | payer MEDICARE ==
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
[2018-10-20 16:54] LABS: ABSOLUTE NEUTROPHIL COUNT 1.18; BASO % 0.4 % (0-6); EOS % 0.4 % (0-6); GRAN % 48.6 % (47-80); HEMATOCRIT 41.5 % (35.0-47.0); HEMOGLOBIN 13.1 gm/dl (11.6-16.0); LYMPH % 37.4 % (16-45); MEAN CELL VOLUME 75.6 fl (81-97); MEAN CORPUSCULAR HGB CONC 31.6 g/dl (32-36); MEAN PLATELET VOLUME 10.5 fl (7.4-10.4); MONO % 13.2 % (0-9); PLATELET COUNT 189 K/uL (130-400); RED BLOOD COUNT 5.49 M/uL (3.80-5.40); RED CELL DISTRIBUTION WIDTH 17.3 % (11.5-14.5); WHITE BLOOD COUNT W/O DIFF 2.4 K/uL (4.2-12.2)
[2018-10-20 16:55] LABS: MEAN CORPUSCULAR HEMOGLOBIN 23.8 pg (27-33)
[2018-10-20 17:03] LABS: CREATININE 2.2 mg/dL (0.5-0.9)
[2018-10-20 17:29] LABS: ALBUMIN 3.9 g/dL (4.0-5.0)
[2018-10-20 17:30] LABS: URINE APPEARANCE CLOUDY; URINE BILIRUBIN MODERATE (NEGATIVE); URINE BLOOD LARGE (NEGATIVE); URINE COLOR YELLOW; URINE GLUCOSE (UA) NEGATIVE (NEGATIVE); URINE KETONE TRACE (NEGATIVE); URINE LEUKOCYTE ESTERASE MODERATE (NEGATIVE); URINE NITRITE NEGATIVE (NEGATIVE); URINE UROBILINOGEN 0.2 E.U./dL (0.20 - 1.00)
[2018-10-20 17:38] LABS: URINE BACTERIA FEW; URINE WBC 36 - 50 (0-2/hpf)
[2018-10-20 17:39] LABS: THYROID STIMULATING HORMONE 0.31 uIU/mL (0.270-4.20)
[2018-10-20] MEDS ORDERED: CEFTRIAXONE 1GM/50ML BAG IVPB SCH (17:45)
[2018-10-20] MEDS ORDERED: CEFTRIAXONE 1GM/50ML BAG IVPB ONE (17:58)
[2018-10-20] MEDS ORDERED: CEFTRIAXONE 1GM/50ML BAG 1 GM/50 ML BAG IVPB ONE (18:01)
[2018-10-20] MEDS ORDERED: 0.9 % SODIUM CHLORIDE 1000ML 1,000 ML IV PRN (18:19)
--- NOTE | 2018-10-22 20:17 | RADIOLOGY REPORT ---
EXAM: PELVIS, COMPLETE 3 VIEWS HISTORY: HISTORY OF FALL. TECHNIQUE: Multiple views of the pelvis are provided along with a comparison study dated 10/08/2018. FINDINGS: Osteopenia of the osseous structures is noted. There is no radiographic evidence of a fracture or dislocation of the pelvis. Visualized hips are unremarkable. Degenerative changes of the lower lumbar spine and sacroiliac joints are identified. IMPRESSION: STABLE RADIOGRAPHIC APPEARANCE OF THE PELVIS WITH RESPECT TO THE PRIOR EXAMINATION. JOB NUMBER: [id number] MTDD
--- NOTE | 2018-10-22 20:39 | CT SCAN REPORT ---
EXAM: CT SCAN HEAD WO CONTRAST HISTORY: FALL. TECHNIQUE: Serial axial CT scan of the head was performed at 2.5 mm intervals from the base of the skull to the apex without the use of intravenous contrast. Sagittal and coronal reconstructions are provided. No comparison CT's are available. FINDINGS: The ventricles, cisterns, sulci appear within normal limits for size, shape, and attenuation. There is no mass or mass effect. Moderate periventricular and subcortical white matter chronic small vessel ischemic changes are identified. There is no CT evidence of intra or extraaxial fluid collection to suggest bleeding. Bone windows demonstrate postoperative changes of the upper cervical spine. There is no CT evidence of a fracture or dislocation of the skull. Paranasal sinuses are unremarkable. IMPRESSION: POSTOPERATIVE CHANGES OF THE CERVICAL SPINE ARE NOTED. THERE IS NO CT EVIDENCE OF AN ACUTE INTRACRANIAL PROCESS. CHRONIC SMALL VESSEL ISCHEMIC CHANGES ARE IDENTIFIED, DISCUSSED ABOVE. IF THERE FURTHER CLINICAL CONCERN, THEN MRI OF THE BRAIN CAN BE OBTAINED FOR FURTHER EVALUATION. JOB NUMBER: [id number] MTDD
== END 2018-10-20 21:33 | disposition short-term general hospital (02) ==
LOC: ER 15:40
DX: S09.90XA Unspecified injury of head, initial encounter (principal); R53.1 Weakness; N30.01 Acute cystitis with hematuria; E83.52 Hypercalcemia; D72.819 Decreased white blood cell count, unspecified; I10 Essential (primary) hypertension; W01.190A Fall on same level from slipping, tripping and stumbling with subsequent striking against furniture, initial encounter; Z91.81 History of falling; Y92.000 Kitchen of unspecified non-institutional (private) residence as the place of occurrence of the external cause; Z86.73 Personal history of transient ischemic attack (TIA), and cerebral infarction without residual deficits
CPT/HCPCS: 99285 ×2; 96365; 82040; 85025; 80048; 81001; 84443; 72190; 70450; J0696